=== PATIENT | female | born 1970 | race Caucasian/White ===

== ENCOUNTER → 2018-06-05 09:04 | Outpatient (CLI) | payer OTHER, SELFPAY | PROVIDERS: Visit Provider Physician Assistant | DX: J02.9 Acute pharyngitis, unspecified (principal) | CPT/HCPCS: 87070; 87147 ==

== ENCOUNTER 2021-07-01 17:30 | Emergency (ER) | payer OTHER, SELFPAY ==
--- NOTE | 2021-07-01 17:45 | DI.RAD.S_ITS ---
PROCEDURE: XR CLAVICLE RT INDICATIONS: laceration, look for glass foreign body TECHNIQUE: 2 views of the clavicle were acquired. COMPARISON: None. FINDINGS: Bones: No fractures or dislocations. No suspicious bony lesions. Moderate acromioclavicular joint degeneration. Node is made of a ossicle superior to a chromium. Soft tissues: No suspicious soft tissue calcifications. No radiopaque foreign body. IMPRESSION: 1. No acute osseous abnormalities. 2. Degenerative joint disease. 3. No radiopaque foreign body. Dictated by: Hoang More M.D. on 07/01/2021 at 18:09 Approved by: Hoang More M.D. on 07/01/2021 at 18:10
[2021-07-01 17:48] VITALS: BP 151/90; PULSE 90; RESP 18; TEMP 36.7; O2SAT 100; BMI 38.6
[2021-07-01] MEDS: IBUPROFEN 400 MG TABLET 800 MG PO (17:59)
[2021-07-01 18:00] VITALS: PULSE 85; O2SAT 100
--- NOTE | 2021-07-01 18:03 | PC.NURSE ---
Addendum entered by Adeline Saeed R.N. 07/01/21 18:05: Advil 800mg PO administered. not mortin Original Note: pt with multiple lacerations. R shoulder, R side top of head, back of neck and small lacerations to upper back in between shoulders. bleeding well controlled at this time. pt medicated w jesus.
[2021-07-01 18:30] VITALS: PULSE 77; O2SAT 99
--- NOTE | 2021-07-01 18:56 | ED.HEATRA ---
HPI - Head Injury <Chang Mckeon PA-C - Last Filed: 07/01/21 20:02> General Chief complaint: Fall Stated complaint: Fall into window while on ladder Source: patient, family and EMS Mode of arrival: EMS Limitations: no limitations History of Present Illness HPI Narrative: Kayla presents today with chief complaint multiple lacerations after falling from a ladder approximately 4 ft off the ground into a double pain glass window. She was wearing a heavy jacket and overall is as well as a hand. She reports a laceration to the top of her head, right shoulder, and small laceration on her right cheek. EMS arrived on the scene and helped her safely get out of the pile of class and then transported her here. Her last tetanus was 6 months ago. She denies any significant chest pain, difficulty walking, difficulty breathing, abdominal pain, preceding headache, dizziness or any other acute concerns or complaints at this time. She is not on any blood thinners. Related Data Home Medications Medication Instructions Recorded Confirmed ascorbic acid (vitamin C) 500 mg #0 09/18/17 06/05/18 tablet cholecalciferol (vitamin D3) 10 #0 09/18/17 06/05/18 mcg/mL (400 unit/mL) oral drops cyanocobalamin (vitamin B-12) 250 #0 09/18/17 06/05/18 mcg tablet (Vitamin B-12) Previous Rx's Medication Instructions Recorded azithromycin 250 mg tablet See Rx Instructions PO .COMPLEX #6 06/05/18 tab Allergies Allergy/AdvReac Type Severity Reaction Status Date / Time Penicillins [PENICILLINS] Allergy Unknown Verified 07/01/21 17:58 meperidine [From Demerol] Allergy Verified 06/05/18 08:41 Review of Systems <Chang Mckeon PA-C - Last Filed: 07/01/21 20:02> Review of Systems Narrative: As per HPI Patient History <Chang Mckeon PA-C - Last Filed: 07/01/21 20:02> Social History Smoking Status: Former smoker alcohol intake: current Smoking Status: Former smoker alcohol intake frequency: holidays/special occasions only Substance Use Type: does not use Exam <Chang Mckeon PA-C - Last Filed: 07/01/21 20:02> Narrative Exam Narrative: Exam Narrative: Const General: cooperative, healthy appearing, comfortable, no acute distress, well developed and well groomed Nutritional Appearance: Elevated BMI Orientation: alert and oriented x3 [facility] Head: normal to inspection, 1.5 cm laceration to the right side of the crown of her head. Small amount of bleeding noted. No underlying bony tenderness or crepitus. Ears: hearing grossly normal bilaterally, no hemotympanum Nose: external nose normal and nares normal, no nasal discharge Eyes: PERRLA, EOMI, periorbital findings normal. Face and sinus: normal facial exam, small 1 cm superficial laceration to right cheek. No foreign bodies noted. Neck Neck: normal visual inspection and supple, no midline spinal tenderness and full range of motion Musculoskeletal No midline spinal tenderness. Two small 1 cm lacerations over right shoulder near AC joint. No foreign body visualized on point of care ultrasound. Not currently bleeding. Resp Effort & Inspection: normal respiratory effort, able to speak in complete sentences, no audible wheezes, not labored, no nasal flaring and no respiratory distress, clear to auscultation bilaterally Cardiac Regular rate, regular rhythm, no discernible murmurs, rubs or gallops Neuro General: alert, oriented x3, gait normal, tone normal and moves all extremities, cranial nerves 2-12 grossly intact, normal coordination Cognition: normal cognition Speech: speech normal Gait: normal gait Psych Appearance: grossly normal and well kempt Mental Status: mental status grossly normal Speech and Movement: speech and movement normal Mood: congruent mood Affect: normal affect Initial Vital Signs Initial Vital Signs: Vital Signs Temperature 98.1 F 07/01/21 17:48 Pulse Rate 90 07/01/21 17:48 Respiratory Rate 18 07/01/21 17:48 Blood Pressure 151/90 H 07/01/21 17:48 Pulse Oximetry 100 07/01/21 17:48 <Paulina Sue DO - Last Filed: 07/01/21 22:34> Initial Vital Signs Initial Vital Signs: Vital Signs Temperature 98.1 F 07/01/21 17:48 Pulse Rate 90 07/01/21 17:48 Respiratory Rate 18 07/01/21 17:48 Blood Pressure 151/90 H 07/01/21 17:48 Pulse Oximetry 100 07/01/21 17:48 Procedures <Chang Mckeon PA-C - Last Filed: 07/01/21 20:02> Laceration Repair Laceration 1: Site: scalp Side (If applicable): right Size (cm): 1.5 Description: linear Depth: simple, single layer Skin layer closed with: leona Number of sutures: 1 Laceration 2: Site: face Side (If applicable): right Size (cm): 1 Description: linear Depth: simple, single layer Skin layer closed with: dermabond Laceration 3: Site: upper extremity (right shoulder) Side (If applicable): right Size (cm): 1.5 Description: irregular Skin layer closed with: steri-strips (2) Course <Chang Mckeon PA-C - Last Filed: 07/01/21 20:02> Orders Ordered: ED Orders 07/01/21 17:45 XR clavicle RT Stat Discontinued Medications Ibuprofen (Ibuprofen 400 Mg Tablet) 800 mg PO NOW ONE Stop: 07/01/21 17:53 Last Admin: 07/01/21 17:59 Dose: 800 mg Documented by: MAGGY Vital Signs Vital signs: Vital Signs - 8 hr 07/01/21 17:48 07/01/21 18:00 07/01/21 18:30 Temperature 98.1 F Pulse Rate 90 85 77 Respiratory Rate 18 Blood Pressure 151/90 H Pulse Oximetry 100 100 99 07/01/21 19:57 Temperature Pulse Rate 85 Respiratory Rate Blood Pressure 147/78 H Pulse Oximetry 96 <Paulina Sue DO - Last Filed: 07/01/21 22:34> Orders Ordered: ED Orders 07/01/21 17:45 XR clavicle RT Stat Discontinued Medications Ibuprofen (Ibuprofen 400 Mg Tablet) 800 mg PO NOW ONE Stop: 07/01/21 17:53 Last Admin: 07/01/21 17:59 Dose: 800 mg Documented by: MAGGY Vital Signs Vital signs: Vital Signs - 8 hr 07/01/21 17:48 07/01/21 18:00 07/01/21 18:30 Temperature 98.1 F Pulse Rate 90 85 77 Respiratory Rate 18 Blood Pressure 151/90 H Pulse Oximetry 100 100 99 07/01/21 19:57 Temperature Pulse Rate 85 Respiratory Rate Blood Pressure 147/78 H Pulse Oximetry 96 MDM - Head Injury <Chang Mckeon PA-C - Last Filed: 07/01/21 20:02> MDM Narrative Medical decision making narrative: No evidence of intracranial injury or skull fracture at this time. She did not lose consciousness so did not think that CT scan is warranted at this time. No hemotympanum or rhinorrhea. She has no midline spinal tenderness and full range of motion of the neck without difficulty. POC Ultrasound was done on the laceration of her right shoulder and no foreign body was visualized. X-ray was also done which do not show any radiopaque foreign bodies. She is up-to-date on her tetanus. Lacerations were closed and return precautions were discussed with the patient. Patient verbalizes understanding and agrees to plan and has no further concerns at this time. Thank you A [id number] system was used with the dictation of this note. Please disregard any spelling or grammatical errors. Discharge Plan Departure Patient Disposition: Home Clinical Impression: Fall Qualifiers: Encounter type: initial encounter Qualified Code(s): W19.XXXA - Unspecified fall, initial encounter Laceration of head Qualifiers: Encounter type: initial encounter Location of open wound of head: scalp Foreign body presence: without foreign body Qualified Code(s): S01.01XA - Laceration without foreign body of scalp, initial encounter Facial laceration Qualifiers: Encounter type: initial encounter Qualified Code(s): S01.81XA - Laceration without foreign body of other part of head, initial encounter Laceration of right shoulder Qualifiers: Encounter type: initial encounter Qualified Code(s): S41.011A - Laceration without foreign body of right shoulder, initial encounter Activity Restrictions/Additional Instructions: It was very nice to meet you this evening. The staple will need to be removed in 5 days. Please monitor for signs of infection which include increased redness, swelling, increased pain, fever. I expect that you will be quite sore for the next few days. Please use acetaminophen or ibuprofen as needed for pain management. If you experience any new or worsening symptoms please return for re-evaluation. Otherwise, follow up with your PCP as needed. Thank you Chang Mckeon PA-C Prescriptions: No Action azithromycin 250 mg tablet See Rx Instructions PO .COMPLEX Qty: 6 RF: 0 cyanocobalamin (vitamin B-12) [Vitamin B-12] 250 MCG tablet Qty: 0 RF: 0 ascorbic acid (vitamin C) 500 MG tablet Qty: 0 RF: 0 cholecalciferol (vitamin D3) 400 UNIT/1 ML drops Qty: 0 RF: 0 <Paulina Botnick, DO - Last Filed: 07/01/21 22:34> Cosign ED Attending Cosignature Attestation: I was immediately available in the department for consultation. Documentation has been reviewed.
[2021-07-01 19:57] VITALS: BP 147/78; PULSE 85; O2SAT 96
== END 2021-07-01 19:58 | disposition home or self-care (01) ==
PROVIDERS: Emergency Provider Physician Assistant
DX: S41.011A Laceration without foreign body of right shoulder, initial encounter (principal); S01.411A Laceration without foreign body of right cheek and temporomandibular area, initial encounter; S01.01XA Laceration without foreign body of scalp, initial encounter; W11.XXXA Fall on and from ladder, initial encounter; W18.02XA Striking against glass with subsequent fall, initial encounter
CPT/HCPCS: 12002; 12011; 73000; 99283

== ENCOUNTER → 2022-11-15 08:16 | Outpatient (CLI) | payer OTHER, SELFPAY | PROVIDERS: Visit Provider Nurse Practitioner Family | DX: J02.9 Acute pharyngitis, unspecified (principal) | CPT/HCPCS: 87070 ==